=== PATIENT | female | born 1980 | race Hispanic/Latino ===

== ENCOUNTER → 2023-06-19 16:43 | Outpatient (REF) | payer OTHER, SELFPAY | LOC: PAVMRI 16:43 | PROVIDERS: ATTENDING PHYSICIAN Podiatrist Foot & Ankle Surgery; FAMILY PHYSICIAN Nurse Practitioner Adult Health | DX: S93.431A Sprain of tibiofibular ligament of right ankle, initial encounter (principal); S93.491A Sprain of other ligament of right ankle, initial encounter; S93.421A Sprain of deltoid ligament of right ankle, initial encounter | CPT/HCPCS: 73721 ==

== ENCOUNTER → 2023-12-29 07:18 | Outpatient (REF) | payer OTHER, SELFPAY ==
[2023-12-29 08:36] LABS: Hematocrit 37.6 % (37.0-47.0); Hemoglobin 12.5 g/dL (12.0-16.0); Mean Corp Hgb Conc. 33.2 g/dL (33.0-37.0); Mean Corpuscular Hgb 29.7 pg (27.0-31.0); Mean Corpuscular Volume 89.3 fL (81.0-99.0); Mean Platelet Volume 10.1 fL (7.4-10.4); Platelet Count 274 10^3/uL (130-400); Red Blood Cell Count 4.21 10^6/uL (4.20-5.40); Red Cell Dist. Width 12.7 % (11.5-14.5); White Blood Cell Count 6.1 10^3/uL (4.8-10.8)
[2023-12-29 09:08] LABS: ALT (SGPT) 31 U/L (0-35); AST (SGOT) 32 U/L (14-36); Albumin 4.6 g/dl (3.5-5.0); Alkaline Phosphatase 70 U/L (38-126); Blood Urea Nitrogen 10 mg/dl (7-17); Calcium 9.6 mg/dl (8.4-10.2); Carbon Dioxide 27 mmol/L (22-30); Chloride 103 mmol/L (98-107); Glucose 88 mg/dl (70-99); Potassium 4.5 mmol/L (3.5-5.1); Sodium 141 mmol/L (135-145); Total Bilirubin 1.2 mg/dl (0.2-1.3); Total Protein 7.1 g/dl (6.3-8.2); eGFR > 60.00
[2023-12-30 08:47] LABS: H. pylori Breath Test Positive (Negative)
== END ==
LOC: CLINIC 07:18
PROVIDERS: ATTENDING PHYSICIAN Nurse Practitioner Adult Health
DX: K29.60 Other gastritis without bleeding (principal)
CPT/HCPCS: 36415; 80053; 83013; 85027

== ENCOUNTER → 2024-02-13 16:29 | Outpatient (REF) | payer OTHER, SELFPAY ==
[2024-02-15 13:35] LABS: Lyme Antibody Screen, EIA Negative (Negative)
[2024-02-15 17:19] LABS: H. pylori Breath Test Negative (Negative)
== END ==
LOC: REG 16:29
PROVIDERS: ATTENDING PHYSICIAN Nurse Practitioner Adult Health
DX: G51.0 Bell's palsy (principal); B96.81 Helicobacter pylori [H. pylori] as the cause of diseases classified elsewhere
CPT/HCPCS: 36415; 83013; 86618

== ENCOUNTER → 2024-08-05 11:10 | Outpatient (REF) | payer OTHER, SELFPAY ==
[2024-08-05 12:07] LABS: Hemoglobin 12.7 g/dL (12.0-16.0); Mean Corp Hgb Conc. 34.3 g/dL (33.0-37.0); Mean Corpuscular Volume 90.2 fL (81.0-99.0); Mean Platelet Volume 9.8 fL (7.4-10.4); Platelet Count 245 10^3/uL (130-400); Red Cell Dist. Width 12.9 % (11.5-14.5); White Blood Cell Count 5.8 10^3/uL (4.8-10.8)
[2024-08-05 12:34] LABS: ALT (SGPT) 22 U/L (0-35); AST (SGOT) 22 U/L (14-36); Albumin 4.7 g/dl (3.5-5.0); Alkaline Phosphatase 81 U/L (38-126); Blood Urea Nitrogen 12 mg/dl (7-17); Calcium 9.3 mg/dl (8.4-10.2); Carbon Dioxide 26 mmol/L (22-30); Chloride 106 mmol/L (98-107); Glucose 89 mg/dl (70-99); Potassium 5.1 mmol/L (3.5-5.1); Sodium 139 mmol/L (135-145); Total Bilirubin 1.2 mg/dl (0.2-1.3); Total Protein 7.3 g/dl (6.3-8.2); eGFR > 60.00
== END ==
LOC: RAD 11:10
PROVIDERS: ATTENDING PHYSICIAN Nurse Practitioner Adult Health
DX: K81.9 Cholecystitis, unspecified (principal)
CPT/HCPCS: 36415; 76700; 80053; 85027

== ENCOUNTER → 2024-11-04 07:19 | Outpatient (REF) | payer OTHER, SELFPAY | LOC: CLINIC 07:19 | PROVIDERS: ATTENDING PHYSICIAN Nurse Practitioner Adult Health | DX: R10.13 Epigastric pain (principal) | CPT/HCPCS: 36415; 83013 ==

== ENCOUNTER → 2024-12-30 16:08 | Outpatient (REF) | payer OTHER, SELFPAY | LOC: CLINIC 16:08 | PROVIDERS: ATTENDING PHYSICIAN Nurse Practitioner Adult Health | DX: A04.8 Other specified bacterial intestinal infections (principal) | CPT/HCPCS: 36415; 83013 ==